=== PATIENT | male | born 1955 | race Caucasian/White ===

== ENCOUNTER → 2019-03-02 15:00 | Outpatient (ROUT) | payer OTHER, SELFPAY ==
[2019-03-02 15:53] LABS: Alanine Aminotransferase 36 IU/L (<50); Albumin 4.8 g/dL (3.5-5.0); Albumin Globulin Ratio 1.5 (1.0-2.8); Alkaline Phosphatase 76 U/L (38-126); Aspartate Aminotransferase 33 IU/L (17-59); Bilirubin Total 0.6 mg/dL (0.2-1.3); Blood Urea Nitrogen 18 mg/dL (9-20); Carbon Dioxide 23 mmol/L (22-32); Chloride 104 mmol/L (98-107); Cholesterol 200 mg/dL (140-199); Estimated Glomerular Filt Rate > 60.0 mL/min (>60); Globulin 3.1 g/dL (1.7-4.1); Glucose 97 mg/dL (80-110); HDL Cholesterol 43 mg/dL (40-60); HEMOLYSIS < 15 (0-50); LDL Cholesterol Calculated 119 mg/dL (<100); Potassium 4.7 mmol/L (3.4-5.1); Sodium 139 mmol/L (137-145); Total Protein 7.9 g/dL (6.3-8.2); Triglycerides 191 mg/dL (35-150)
[2019-03-05 15:17] LABS: PSA Total 0.75 ng/mL (< 4.01)
== END ==
PROVIDERS: Family Provider Internal Medicine; PCP Internal Medicine; Visit Provider Internal Medicine
DX: Z12.5 Encounter for screening for malignant neoplasm of prostate (principal); I10 Essential (primary) hypertension; E78.5 Hyperlipidemia, unspecified
CPT/HCPCS: 80053; 80061; 84153; 84154

== ENCOUNTER → 2019-08-31 15:19 | Outpatient (ROUT) | payer OTHER, SELFPAY ==
[2019-08-31 15:57] LABS: Alanine Aminotransferase 32 IU/L (<50); Albumin 4.8 g/dL (3.5-5.0); Albumin Globulin Ratio 1.7 (1.0-2.8); Alkaline Phosphatase 84 U/L (38-126); Aspartate Aminotransferase 32 IU/L (17-59); BUN Creatinine Ratio 16.1 (6-22); Bilirubin Total 0.6 mg/dL (0.2-1.3); Blood Urea Nitrogen 14 mg/dL (9-20); Calcium 10.6 mg/dL (8.4-10.2); Carbon Dioxide 25 mmol/L (22-32); Chloride 103 mmol/L (98-107); Cholesterol 174 mg/dL (140-199); Estimated Glomerular Filt Rate > 60.0 mL/min (>60); Globulin 2.9 g/dL (1.7-4.1); Glucose 107 mg/dL (80-110); HDL Cholesterol 42 mg/dL (40-60); HEMOLYSIS < 15 (0-50); LDL Cholesterol Calculated 85 mg/dL (<100); Potassium 4.9 mmol/L (3.4-5.1); Sodium 138 mmol/L (137-145); Total Protein 7.7 g/dL (6.3-8.2); Triglycerides 234 mg/dL (35-150)
== END ==
PROVIDERS: Family Provider Internal Medicine; PCP Internal Medicine; Visit Provider Internal Medicine
DX: I10 Essential (primary) hypertension (principal); E78.5 Hyperlipidemia, unspecified
CPT/HCPCS: 80053; 80061

== ENCOUNTER → 2020-03-01 14:51 | Outpatient (ROUT) | payer OTHER, SELFPAY ==
[2020-03-01 15:40] LABS: Alanine Aminotransferase 31 IU/L (<50); Albumin 4.3 g/dL (3.5-5.0); Albumin Globulin Ratio 1.5 (1.0-2.8); Alkaline Phosphatase 90 U/L (38-126); Aspartate Aminotransferase 43 IU/L (17-59); BUN Creatinine Ratio 14.6 (6-22); Bilirubin Total 0.5 mg/dL (0.2-1.3); Blood Urea Nitrogen 13 mg/dL (9-20); Calcium 9.6 mg/dL (8.4-10.2); Carbon Dioxide 25 mmol/L (22-32); Chloride 105 mmol/L (98-107); Cholesterol 152 mg/dL (140-199); Estimated Glomerular Filt Rate > 60.0 mL/min (>60); Globulin 2.9 g/dL (1.7-4.1); Glucose 113 mg/dL (80-110); HDL Cholesterol 40 mg/dL (40-60); HEMOLYSIS < 15 (0-50); LDL Cholesterol Calculated 83 mg/dL (<100); Potassium 4.7 mmol/L (3.4-5.1); Sodium 137 mmol/L (137-145); Total Protein 7.2 g/dL (6.3-8.2); Triglycerides 147 mg/dL (35-150)
== END ==
PROVIDERS: Family Provider Internal Medicine; PCP Internal Medicine; Visit Provider Internal Medicine
DX: I10 Essential (primary) hypertension (principal); E78.5 Hyperlipidemia, unspecified
CPT/HCPCS: 80053; 80061

== ENCOUNTER 2021-12-18 19:20 | Emergency (ER) | payer OTHER, SELFPAY ==
[2021-12-18 19:45] VITALS: BP 143/77; PULSE 92; RESP 18; TEMP 36.2; O2SAT 97; BMI 44.6
--- NOTE | 2021-12-18 19:50 | DI.US.S_ITS ---
PROCEDURE: US PERIPH VENOUS LOW EXTREM RT INDICATIONS: Right leg pain and swelling TECHNIQUE: Real-time imaging, as well as color and pulse Doppler interrogation, were performed of the lower extremity deep veins from the inguinal ligament to the popliteal fossa. COMPARISON: None. FINDINGS: The common femoral, femoral and popliteal veins are normally compressible, and free of intraluminal thrombus. Color and pulse Doppler demonstrate normal phasic intraluminal flow. There is normal augmentation response to distal compression maneuver. IMPRESSION: 2. No evidence of deep venous thrombosis in the right lower extremity. Dictated by: Milton Garcia M.D. on 12/18/2021 at 22:35 Approved by: Milton Garcia M.D. on 12/18/2021 at 22:39
[2021-12-19] MEDS: IBUPROFEN 400 MG TABLET PO (00:14)
[2021-12-19] MEDS: HYDROCODONE/ACET 5/325 TABLET 1 TAB PO (00:14)
--- NOTE | 2021-12-19 01:29 | ED_ITS ---
HPI - Extremity Problem General Chief complaint: Extremity Problem,Nontraumatic Stated complaint: rt leg pain from top to bottom Time Seen by Provider: 12/19/21 01:08 Source: patient Mode of arrival: Ambulatory History of Present Illness HPI Narrative: Patient complains right supragluteal back pain that radiates down his leg to his ankle. No numbness tingling or weakness to the leg or foot. No saddle paresthesia. No bowel or bladder incontinence or retention. Onset 2 or 3 weeks ago. No prior history of this complaint or pain. Increased pain with side bending and leaning back. Increased with weight-bearing as well. Denies any chest pain or abdominal pain. No prior history of blood clots in legs or lungs. is driving. No urinary complaints. Related Data Previous Rx's Medication Instructions Recorded aspirin 325 mg tablet,delayed 325 mg PO QDAY #30 tabs 06/10/16 release atorvastatin 20 mg tablet (Lipitor) 40 mg PO QHS #30 tabs 06/10/16 fluticasone propionate 50 2 spray intranasal QDAY ##16 06/10/16 mcg/actuation nasal spray,suspension lisinopril 10 mg tablet 10 mg PO QDAY #30 tabs 06/10/16 metoprolol tartrate 25 mg tablet 25 mg PO BID #60 tabs 06/10/16 baclofen 20 mg tablet 20 mg PO TID #20 tabs 12/19/21 Allergies Allergy/AdvReac Type Severity Reaction Status Date / Time No Known Drug Allergies Allergy Verified 12/18/21 19:45 Review of Systems Review of Systems Narrative: GENERAL: Denies chills, fatigue, malaise, fever, sweats. HEENT: Denies sinus pain, ear pain, sore throat RESPIRATORY: Denies dyspnea, cough CARDIOVASCULAR: Denies chest pain, palpitations GASTROINTESTINAL: Denies nausea, vomiting, abdominal pain : Denies dysuria, frequency, hematuria MUSCULOSKELETAL: Positive muscle or bony pain SKIN: Denies rash, skin lesions NEUROLOGIC: Denies weakness, numbness ROS Unobtainable: All systems reviewed & are unremarkable except as noted in HPI and below Patient History Social History Smoking Status: Current every day smoker Smoking Status: Current every day smoker alcohol intake frequency: holidays/special occasions only Substance Use Type: does not use Exam Narrative Exam Narrative: GENERAL: in no distress, not toxic not dyspneic, pants off. Shoes and socks off HEAD: Normocephalic. EYES: Pupils equal round No scleral icterus. ENT: Mucous membranes moist. NECK: Trachea midline. CARDIOVASCULAR: Regular rate and rhythm without murmurs RESPIRATORY: Clear to auscultation. Breath sounds equal bilaterally. No wheezes, rales, or rhonchi. GASTROINTESTINAL: Abdomen soft, non-tender EXTREMITIES: No gross deformities. BACK: No flank tenderness. Reproducible right supragluteal tenderness. Increased pain right straight leg at 45?. Able to stand and walk, slight antalgic gait. Increased pain with side bends. Able to lean forward and touch his shins though. Increased pain with leaning back. NEURO: AOx4. Slightly antalgic gait to right leg pain. No foot drop. Strong bilateral patellar reflexes and ankle flexion and extension. Light touch intact to legs and feet. SKIN: Warm and dry PSYCH: Not anxious, is cooperative Initial Vital Signs Initial Vital Signs: Vital Signs Temperature 97.2 F L 12/18/21 19:45 Pulse Rate 92 H 12/18/21 19:45 Respiratory Rate 18 12/18/21 19:45 Blood Pressure 143/77 H 12/18/21 19:45 Pulse Oximetry 97 12/18/21 19:45 Oxygen Delivery Method 12/18/21 19:45 Course Course Course Narrative: No new issues during course of stay Orders Ordered: Discontinued Medications Hydrocodone Bitart/Acetaminophen (Hydrocodone/Acet 5/325 Tablet) 1 tab PO NOW ONE Stop: 12/19/21 00:10 Last Admin: 12/19/21 00:14 Dose: 1 tab Documented By: MARK Ibuprofen (Ibuprofen 400 Mg Tablet) 400 mg PO NOW ONE Stop: 12/19/21 00:10 Last Admin: 12/19/21 00:14 Dose: 400 mg Documented By: MARK Reevaluation(s) Reevaluation #1: Reviewed ultrasound and exam with patient and . They do not want further imaging x-ray or CT scan. They preferred to follow up with family doctor for these images as well as for referral to physical therapy and MRI. Return precautions reviewed with them. They desire discharge home. Pain better after pain medication provided here. Time: 01:35 Vital Signs Vital signs: Vital Signs - 8 hr 12/19/21 01:34 Pulse Rate 72 Respiratory Rate 18 Blood Pressure 148/70 H Pulse Oximetry 98 Oxygen Delivery Method Room Air MDM - Extremity (Nontraumatic) Differential Diagnosis Differential diagnosis: Likely other (Sciatica/DVT/lumbar radiculopathy) Imaging Data US - DVT: Radiologist's Impression: [address] [id number] ReportSigned Patient: Duke So JMR#: [id number]: 4Acct:[id number]/Sex: 66 / MDate of Service: 12/18/21Loc: EDAccession Number: [id number] Procedure: US periph venous low extrem rt Ordering Provider: Tk Brady MD PROCEDURE: US PERIPH VENOUS LOW EXTREM RT INDICATIONS: Right leg pain and swelling TECHNIQUE: Real-time imaging, as well as color and pulse Doppler interrogation, were performed of the lower extremity deep veins from the inguinal ligament to the popliteal fossa. COMPARISON: None. FINDINGS: The common femoral, femoral and popliteal veins are normally compressible, and free of intraluminal thrombus. Color and pulse Doppler demonstrate normal phasic intraluminal flow. There is normal augmentation response to distal compression maneuver. IMPRESSION: 2. No evidence of deep venous thrombosis in the right lower extremity. Dictated by: Milton Garcia M.D. on 12/18/2021 at 22:35 Approved by: Milton Gacria M.D. on 12/18/2021 at 22:39 [facility] Narrative Medical decision making narrative: Appropriate for discharge home. Exam and imaging otherwise reassuring. Clinically is sciatica/lumbar radiculopathy. Return precautions reviewed with patient and . Patient has no neuro deficits. Likely not dissection or kidney stone clinically. Patient and desire discharge home for follow-up with primary care for further imaging and physical therapy referral. Discharge Plan Departure Patient Disposition: Home Clinical Impression: Sciatica of right side Instructions: DI for Back Pain With Sciatica Activity Restrictions/Additional Instructions: No driving or operating machinery tonight or when taking prescribed muscle relaxer. See your family doctor within a week for re-evaluation and to order MRI of your lower back if not improving, you may need referral for physical therapy as well. Do continue to walk and stretch your back and leg. Return if worse if any questions or concerns Prescriptions: New baclofen 20 mg tablet 20 mg PO TID Qty: 20 0RF No Action aspirin 325 MG tablet,delayed release (DR/EC) 325 mg PO QDAY Qty: 30 0RF atorvastatin [Lipitor] 20 MG tablet 40 mg PO QHS Qty: 30 3RF lisinopril 10 MG tablet 10 mg PO QDAY Qty: 30 3RF fluticasone propionate 16 GM spray,suspension 2 spray Intranasal QDAY Qty: 16 0RF metoprolol tartrate 25 MG tablet 25 mg PO BID Qty: 60 3RF Referrals: Megan Piña MD [Primary Care Provider] - Visit Report Forms: Patient Portal/API
[2021-12-19 01:34] VITALS: BP 148/70; PULSE 72; RESP 18; O2SAT 98
== END 2021-12-19 01:35 | disposition home or self-care (01) ==
PROVIDERS: Emergency Provider Emergency Medicine; PCP Internal Medicine
DX: M54.41 Lumbago with sciatica, right side (principal)
CPT/HCPCS: 93971; 99283

== ENCOUNTER → 2023-07-10 06:45 | Outpatient (CLI) | payer MEDICARE, SELFPAY ==
--- NOTE | 2023-07-10 06:47 | DI.ECHO.S_ITS ---
[place] [facility]+ [facility] : : [id number] : : [place] : : [id number] : : Phone: [phone] Echocardiogram Report + + :Name: NIGEL FRAGA Study Date: 07/10/2023 Height: 67.5 in: :[facility] ReadingLocation: Weight: 203 lb : : Gender: Male BSA: 2.0 m2 : :: 1955 Age: 67 yrs BP: 115/74 mmHg: :Reason For Study: CARDIOMYOPATHY : :Ordering Physician: PERFECTO, : :GIRMA Performed By: Dayana Gresham : :Referring: GIRMA GROVE : + + Interpretation Summary 1. The left ventricular contractility is normal. Estimated ejection fraction is greater than 55% with no segmental wall motion abnormalities. No left ventricular hypertrophy is noted. Impaired relaxation present. 2. The right ventricular contractility is normal. 3. All cardiac chambers are normal size. 4. There is mild aortic insufficiency noted. 5. There is mild pulmonic insufficiency present. 6. No obvious intracardiac shunts noted. 7. No obvious intracardiac masses nor thrombi appreciated. 8. No hemodynamically significant pericardial effusion identified. Conclusion: Normal biventricular function with no significant structural abnormalities. When compared with previous echocardiogram, there appears to be recovery of the left ventricular systolic function. Procedure: A two-dimensional transthoracic echocardiogram with color flow and Doppler was performed. The study quality was technically adequate. Comparison is made with the echocardiogram of 06/09/2016. The patient was in sinus bradycardia with heart rates between 59-63 bpm during the exam. Left Ventricle: The left ventricle is normal in size and wall thickness. The ejection fraction is estimated to be 55-60%. Right Ventricle: The right ventricle is normal in size and function. Atria: The left atrial size is normal. Right atrial size is normal. There is no Doppler evidence for an interatrial shunt. Mitral Valve: The mitral valve is normal in structure and function. There is trace mitral regurgitation. Aortic Valve: The aortic valve is trileaflet. The aortic valve opens well. There is no aortic valve stenosis. There is mild aortic regurgitation. Tricuspid Valve: The tricuspid valve is normal in structure and function. There is trace tricuspid regurgitation. The right ventricular systolic pressure is estimated to be at least 18 mmHg based on an estimated right atrial pressure of 3 mm Hg. Pulmonic Valve: The pulmonic valve leaflets are thin and pliable; valve motion is normal. There is mild pulmonic regurgitation. Great Vessels: The aortic root is normal size. The dimensions of the ascending aorta are normal. The IVC is of normal diameter and collapses greater than 50% with a sniff. This suggests a low right atrial pressure of 3 mm Hg. Pericardium/ Pleura There is no pericardial effusion. There is no pleural effusion. MMode/2D Measurements & Calculations LVIDd: 5.5 cm LVOT diam: 2.2 cm LVIDs: 3.9 cm Ao root diam: 3.5 cm FS: 28.9 % asc Aorta Diam: 3.8 cm EPSS: 0.61 cm IVSd: 1.0 cm LVPWd: 0.89 cm LV sprague. diameter/BSA (cm/m^2): 2.7 LV sys. diameter/BSA (cm/m^2): 1.9 LA A2 area: 19.3 cm2 RA long axis: 4.6 cm LA A4 area: 16.5 cm2 RA area: 14.8 cm2 LA length (vol): 5.2 cm RA vol: 40.1 ml LA vol: 52.0 ml RA : 19.6 ml/m2 LA vol index: 25.4 ml/m2 IVC diam: 1.2 cm RVD1 (basal): 3.8 cm TAPSE: 2.2 cm Doppler Measurements & Calculations Ao V2 max: 158.4 cm/sec LVOT Max Philipp: 89.4 cm/sec Ao V2 mean: 105.6 cm/sec LV V1 max P.2 mmHg Ao max P.0 mmHg LV V1 VTI: 22.0 cm Ao mean P.1 mmHg OZZY(I,D): 2.4 cm2 Ao V2 VTI: 36.2 cm OZZY(V,D): 2.2 cm2 sev ratio: 0.61 OZZY indexed to BSA (cm^2/m^2): 1.2 AI P1/2t: 608.0 msec AI dec slope: 155.0 cm/sec2 MV E max philipp: 79.3 cm/sec TR max philipp: 195.3 cm/sec MV A max philipp: 87.9 cm/sec TR max P.3 mmHg MV E/A: 0.90 PA V2 max: 81.2 cm/sec Med Peak E' Philipp: 8.5 cm/sec PA V2 mean: 58.4 cm/sec E/E' med: 9.3 PA mean P.5 mmHg Lat Peak E' Philipp: 7.6 cm/sec PA pr(Accel): 10.5 mmHg E/E' lat: 10.5 E/e' average: 9.9 MV dec time: 0.26 sec SV(LVOT): 85.5 ml Reading Physician:
== END ==
PROVIDERS: PCP Internal Medicine; Referring Provider Internal Medicine; Visit Provider Internal Medicine
DX: I35.1 Nonrheumatic aortic (valve) insufficiency (principal); I37.1 Nonrheumatic pulmonary valve insufficiency; I42.9 Cardiomyopathy, unspecified
CPT/HCPCS: 93306